=== PATIENT | female | born 1965 | race Caucasian/White ===

== ENCOUNTER 2017-11-23 05:56 | Emergency (ER) | payer OTHER ==
--- NOTE | 2017-11-23 06:10 | PDOC ---
History of Present Illness - General History Source: Patient Exam Limitations: No Limitations - History of Present Illness Initial Comments: 11/23/17 06:19 Pt is a 52 yo F with no PMHx who presents to the ED with epigastric pain today. Patient reports waking up in her usual state of health. Patient went to sleep with progressively worsening epigastric pain. Patient denies taking any pain medications for relief. Upon arrival to the ED, patient is in mild distress, holding her chest. Patient reports nausea however denies any vomiting, diarrhea , constipation, melena. Patient denies any recent changes to her diet. PCP: Estrada New <Kathy Hayden - Last Filed: 11/23/17 06:30> <Suni Del Rosario - Last Filed: 11/24/17 03:08> - General Stated Complaint: CHEST PAIN Time Seen by Provider: 11/23/17 06:10 Past History <Kathy Hayden - Last Filed: 11/23/17 06:30> <Suni Del Rosario - Last Filed: 11/24/17 03:08> - Past Medical History Allergies/Adverse Reactions: Allergies Allergy/AdvReac Type Severity Reaction Status Date / Time erythromycin base Allergy Verified 11/23/17 06:15 Home Medications: Ambulatory Orders NK [No Known Home Medication] 11/23/17 Review of Systems - Review of Systems Able to Perform ROS?: Yes Comments:: 11/23/17 06:29 GENERAL/CONSTITUTIONAL: No fever or chills. No weakness. HEAD, EYES, EARS, NOSE AND THROAT: No change in vision. No ear pain or discharge. No sore throat. CARDIOVASCULAR: No chest pain or shortness of breath. RESPIRATORY: No cough, wheezing, or hemoptysis. GASTROINTESTINAL: +epigastric pain, nausea. No vomiting, diarrhea or constipation. GENITOURINARY: No dysuria, frequency, or change in urination. MUSCULOSKELETAL: No joint or muscle swelling or pain. No neck or back pain. SKIN: No rash NEUROLOGIC: No headache, vertigo, loss of consciousness, or change in strength/ sensation. ENDOCRINE: No increased thirst. No abnormal weight change. HEMATOLOGIC/LYMPHATIC: No anemia, easy bleeding, or history of blood clots. ALLERGIC/IMMUNOLOGIC: No hives or skin allergy. <Kathy Hayden - Last Filed: 11/23/17 06:30> *Physical Exam - Vital Signs Last Vital Signs Temp Pulse Resp BP Pulse Ox 97.9 F 74 20 126/80 100 11/23/17 06:15 11/23/17 06:15 11/23/17 06:15 11/23/17 06:15 11/23/17 06:15 - Physical Exam Comments: 11/23/17 06:30 GENERAL: Awake, alert, and fully oriented, in no acute distress HEAD: No signs of trauma EYES: PERRLA, EOMI, sclera anicteric, conjunctiva clear ENT: Auricles normal inspection, hearing grossly normal, nares patent, oropharynx clear without exudates. Moist mucosa NECK: Normal ROM, supple, no lymphadenopathy, JVD, or masses LUNGS: Breath sounds equal, clear to auscultation bilaterally. No wheezes, and no crackles HEART: Regular rate and rhythm, normal S1 and S2, no murmurs, rubs or gallops ABDOMEN: Soft, nontender, normoactive bowel sounds. No guarding, no rebound. No masses EXTREMITIES: Normal range of motion, no edema. No clubbing or cyanosis. No cords, erythema, or tenderness NEUROLOGICAL: Cranial nerves II through XII grossly intact. Normal speech, normal gait SKIN: Warm, Dry, normal turgor, no rashes or lesions noted. <Kathy Hayden - Last Filed: 11/23/17 06:30> ED Treatment Course - LABORATORY CBC & Chemistry Diagram: 11/23/17 06:50 11/23/17 06:50 <Suni Del Rosario - Last Filed: 11/24/17 03:08> Medical Decision Making - Medical Decision Making 11/23/17 06:26 Pt comes with epigastric pain x 4 hrs, getting worse. SHe was given sucralfate and magic mouthwash. She will have labs and NSS 500ml. SHe will get an XRAY EKG is NSR. She will be signed out to the day ER team. 11/23/17 06:52 Morphine 2mg given to the patient. <Suni Del Rosario - Last Filed: 11/24/17 03:08> *DC/Admit/Observation/Transfer - Attestations Scribe Attestion: 11/23/17 06:30 Documentation prepared by Kathy Hayden, acting as medical affairs leader for Suni Del Rosario MD/DO. <Kathy Hayden - Last Filed: 11/23/17 06:30> <Suni Del Rosario - Last Filed: 11/24/17 03:08> Diagnosis at time of Disposition: Chest pain - Discharge Dispostion Disposition: HOME Condition at time of disposition: Improved - Referrals Referrals: Estrada New MD [Primary Care Provider] - - Patient Instructions Printed Discharge Instructions: DI for Atypical Chest Pain Additional Instructions: Activity as tolerated. Stay hydrated. Tylenol 1000 mg every 8 hours and/or ibuprofen 600 mg every 8 hours as needed for pain. Blood tests, an EKG, and a chest x-ray showed no acute abnormalities. Continue your medications as previously prescribed by your physician. You should follow up with Dr. New as soon as possible regarding today's emergency department visit. He is expecting to see you in the office on November 30 for a cardiac evaluation. Return to the emergency department for any new or concerning symptoms, particularly persistent or worsening pain, difficulty breathing, fevers or chills, lightheadedness or passing out. - Post Discharge Activity
[2017-11-23 06:17] VITALS: TEMP 97.9
[2017-11-23] MEDS ORDERED: SUCRALFATE 1 GM/10 ML UNIT DOSE CUPS PO ONE (06:19)
[2017-11-23] MEDS ORDERED: MAG HYDROX/ALH/SMC/DPHA/LIDO 240 ML MOUTHWASH MM ONE (06:25)
[2017-11-23] MEDS ORDERED: SODIUM CHLORIDE 0.9% 500 ML INFUS.BAG IV ONE (06:26)
[2017-11-23] MEDS ORDERED: morphine CARPU-JECT 10 MG/1 ML DISP.SYRIN ONE (06:38)
[2017-11-23] MEDS ORDERED: morphine CARPU-JECT 2 MG/1 ML DISP.SYRIN IVPUSH ONE (06:49)
[2017-11-23 07:26] LABS: BASO % 0.5 % (0-2.0); EOS % 1.3 % (0-4.5); HEMATOCRIT 41.5 % (32.4-45.2); HEMOGLOBIN 13.4 GM/dL (10.7-15.3); LYMPH % 18.9 % (8-40); MCH 26.6 pg (25.7-33.7); MCHC 32.3 g/dl (32.0-36.0); MEAN CELL VOLUME 82.6 fl (80-96); MEAN PLT VOLUME 8.5 fl (7.5-11.1); MONO % 4.6 % (3.8-10.2); NEUT % 74.7 % (42.8-82.8); PLATELET COUNT 308 K/MM3 (134-434); RBC 5.03 M/mm3 (3.60-5.2); RDW 13.7 % (11.6-15.6); WHITE BLOOD COUNT 12.2 K/mm3 (4.0-10.0)
[2017-11-23 07:41] LABS: INR 1.03 (0.82-1.09); PROTHROMBIN TIME (PATIENT) 11.6 SEC (9.98-11.88)
[2017-11-23 07:52] LABS: ALBUMIN 3.6 g/dl (3.4-5.0); ANION GAP 8 (8-16); BILIRUBIN,TOTAL 0.3 mg/dL (0.2-1.0); BLOOD UREA NITROGEN 21 mg/dL (7-18); CHLORIDE 106 mmol/L (98-107); CO2 25 mmol/L (21-32); CREATININE 0.7 mg/dL (0.55-1.02); GLUCOSE,RANDOM 111 mg/dL (74-106); POTASSIUM 3.6 mmol/L (3.5-5.1); SGOT/AST 18 U/L (15-37); SGPT/ALT 35 U/L (12-78); SODIUM 139 mmol/L (136-145); TOT PROT 7.1 g/dl (6.4-8.2)
[2017-11-23 07:55] LABS: ALK PHOS 86 U/L (45-117)
--- NOTE | 2017-11-23 09:03 | PDOC ---
*Physical Exam - Vital Signs Last Vital Signs Temp Pulse Resp BP Pulse Ox 97.9 F 73 16 119/78 99 11/23/17 06:15 11/23/17 07:39 11/23/17 07:39 11/23/17 07:39 11/23/17 07:39 - Physical Exam Comments: 11/23/17 08:40 VSS, normal O2 sat alert seated in stretcher, initially with persistent sharp chest pain then resolved after morphine. Now asleep and comfortable no reproducible chest discomfort lungs clear no edema/calf ttp ED Treatment Course - LABORATORY CBC & Chemistry Diagram: 11/23/17 06:50 11/23/17 06:50 - ADDITIONAL ORDERS Additional order review: Laboratory Results 11/23/17 11/23/17 06:50 06:50 PT with INR 11.60 INR 1.03 Sodium 139 Potassium 3.6 Chloride 106 Carbon Dioxide 25 Anion Gap 8 BUN 21 H Creatinine 0.7 Creat Clearance w eGFR > 60 Random Glucose 111 H Calcium 9.0 Total Bilirubin 0.3 AST 18 ALT 35 Alkaline Phosphatase 86 Creatine Kinase 107 Troponin I 0.02 Total Protein 7.1 Albumin 3.6 11/23/17 06:50 RBC 5.03 MCV 82.6 MCHC 32.3 RDW 13.7 MPV 8.5 Neutrophils % 74.7 Lymphocytes % 18.9 Monocytes % 4.6 Eosinophils % 1.3 Basophils % 0.5 - Medications Given in the ED: ED Medications Discontinued Medications Generic Name Dose Route Start Last Admin Trade Name Freq PRN Reason Stop Dose Admin Lidocaine/Aluminum/Magnesium/Simeth 15 ml 11/23/17 06:25 11/23/17 06:20 Magic Mouthwash *Sjr Formula* - MM 11/23/17 06:26 15 ml ONCE ONE Administration Morphine Sulfate 2 mg 11/23/17 06:49 11/23/17 06:45 Morphine Injection - IVPUSH 11/23/17 06:50 2 mg ONCE ONE Administration Sodium Chloride 500 ml 11/23/17 06:26 11/23/17 06:48 Normal Saline - IV 11/23/17 06:27 500 ml ONCE ONE Administration Sucralfate 1 gm 11/23/17 06:19 11/23/17 06:20 Carafate Oral Suspension - PO 11/23/17 06:20 1 gm ONCE ONE Administration Medical Decision Making - Medical Decision Making 11/23/17 09:03 Received signout on this 52-year-old female with no severe past medical history presents with epigastric/chest pain that awoke her from sleep at 1 AM. The patient was in her usual state of good health, was asleep for about an hour and then was awoken suddenly by sharp pain in the substernal/epigastric region that radiated to her left chest. No associated difficulty breathing, no cough, no lightheadedness or nausea or diaphoresis. No history of similar pain, no history of postprandial pain, no known gastritis/heartburn. Vital signs are normal Exam is normal Plan at sign out was to follow up labs and chest x-ray, patient was given morphine, and plan was to do 2 troponins and likely discharged given low risk for ACS. I added a d-dimer given the atypical presentation for ACS, chest x-ray is normal. First troponin is negative, remaining labs are normal. Patient is much more comfortable, now asleep after morphine. Follow-up d-dimer, check second troponin, distal cortically. Will place patient on observation on monitor for the remainder of the workup. 11/23/17 12:09 Pain resolved, comfortably asleep and without complaints at this time. Trop negative x2, ddimer negative. Discussed with PMD Dr. Collins New, agrees with d/c plan. Made appt for cardiac eval in his office on 11/30, likely stress testing. Pt agrees with d/c plan, understands return criteria. *DC/Admit/Observation/Transfer Diagnosis at time of Disposition: Chest pain Qualifiers: Chest pain type: unspecified Qualified Code(s): R07.9 - Chest pain, unspecified - Discharge Dispostion Disposition: HOME Condition at time of disposition: Improved - Referrals Referrals: Estrada New MD [Primary Care Provider] - - Patient Instructions Printed Discharge Instructions: DI for Atypical Chest Pain Additional Instructions: Activity as tolerated. Stay hydrated. Tylenol 1000 mg every 8 hours and/or ibuprofen 600 mg every 8 hours as needed for pain. Blood tests, an EKG, and a chest x-ray showed no acute abnormalities. Continue your medications as previously prescribed by your physician. You should follow up with Dr. New as soon as possible regarding today's emergency department visit. He is expecting to see you in the office on November 30 for a cardiac evaluation. Return to the emergency department for any new or concerning symptoms, particularly persistent or worsening pain, difficulty breathing, fevers or chills, lightheadedness or passing out. - Post Discharge Activity
[2017-11-23 12:26] VITALS: BP 97/65; PULSE 61
--- NOTE | 2017-11-24 09:41 | EKG ---
Test Reason : Blood Pressure : / mmHG Vent. Rate : 068 BPM Atrial Rate : 068 BPM P-R Int : 180 ms QRS Dur : 082 ms QT Int : 392 ms P-R-T Axes : 032 070 056 degrees QTc Int : 416 ms NORMAL SINUS RHYTHM LOW VOLTAGE QRS BORDERLINE ECG NO PREVIOUS ECGS AVAILABLE Confirmed by MD Anuj, Carlos ([id number]) on 11/24/2017 9:41:06 AM Referred By: Confirmed By:Carlos Leslie MD
== END 2017-11-23 12:27 | disposition home or self-care (01) ==
LOC: JER 05:56
PROC: 3E033NZ Introduction of Analgesics, Hypnotics, Sedatives into Peripheral Vein, Percutaneous Approach (ICD-10-PCS; principal; 2017-11-23)
DX: R07.89 Other chest pain (principal)
CPT/HCPCS: 36415; 71045-TC; 80053; 82550; 84484; 85025; 85379; 85610; 93005; 93010; 96374; 99285-25

== ENCOUNTER 2018-06-20 18:55 | Emergency (ER) | payer OTHER ==
[2018-06-20 19:08] VITALS: BP 128/72; PULSE 72; TEMP 98.9; BMI 30.2
[2018-06-20] MEDS ORDERED: TETANUS AND DIPHTHERIA TOXOID 0.5 ML DISP.SYRIN IM ONE (19:08)
--- NOTE | 2018-06-20 19:11 | PDOC ---
Rapid Medical Evaluation Chief Complaint: Laceration Time Seen by Provider: 06/20/18 19:07 Medical Evaluation: Allergies Allergy/AdvReac Type Severity Reaction Status Date / Time erythromycin base Allergy Verified 06/20/18 19:03 06/20/18 19:07 c/o laceration to 3rd, 4rth and 5th digit cut fingers on a broke glass plate. patient reports that she feels glass piece to left elbow. noted to have a small abrasion. last tetanus unknown PE: + ~ 1.5 cm to 2 cm laceration to 3rd, 4th and 5th digit. A: finger laceration P; xray tetanus patient to fast track for further management of care. 06/20/18 19:09 Discharge Disposition - Diagnosis Finger laceration Qualifiers: Encounter type: initial encounter Finger: unspecified finger Damage to nail status: without damage Foreign body presence: unspecified Laterality: left Qualified Code(s): S61.219A - Laceration without foreign body of unspecified finger without damage to nail, initial encounter - Referrals - Patient Instructions - Post Discharge Activity
[2018-06-20] MEDS ORDERED: LIDOCAINE HCL 1%, 10 MG/ML (50 mL VIAL) SQ ONE (20:35)
[2018-06-20] MEDS ORDERED: LIDOCAINE HCL 1%, 10 MG/ML (20ML VIAL) ONE (20:38)
--- NOTE | 2018-06-20 21:06 | PDOC ---
History of Present Illness - General Chief Complaint: Laceration Stated Complaint: LACERATION Time Seen by Provider: 06/20/18 19:07 - History of Present Illness Initial Comments: 53-year-old female without comorbidities presents for evaluation of laceration on her left hand at this occurred while at home carrying a glass dish. Her tetanus was updated. 06/20/18 21:05 Past History - Past Medical History Allergies/Adverse Reactions: Allergies Allergy/AdvReac Type Severity Reaction Status Date / Time erythromycin base Allergy Verified 06/20/18 19:03 Home Medications: Ambulatory Orders NK [No Known Home Medication] 11/23/17 COPD: No DVT: No Other medical history: DENIES. - Immunization History Immunization Up to Date: Yes - Suicide/Smoking/Psychosocial Hx Smoking History: Never smoked Have you smoked in the past 12 months: No Hx Alcohol Use: No Drug/Substance Use Hx: No Substance Use Type: None Review of Systems - Review of Systems Musculoskeletal: Yes: See HPI All Other Systems: Reviewed and Negative *Physical Exam - Vital Signs Last Vital Signs Temp Pulse Resp BP Pulse Ox 98.9 F 72 19 128/72 97 06/20/18 19:03 06/20/18 19:03 06/20/18 19:03 06/20/18 19:03 06/20/18 19:03 - Physical Exam Comments: Left elbow skin color and temperature are normal there are superficial abrasions on the left elbow full range of motion minimal tenderness no gross sensorimotor deficits Left wrist skin color and temperature are normal there is a superficial abrasion on the volar aspect of the left wrist there is a small piece of glass on one of the wounds in the left wrist at the ulnar aspect. This small piece of glass was removed without complication. Left hand examination There is a irregular laceration on the radial aspect of the middle finger on the skin overlying the middle phalanx FDS and FDP function independently there are no gross sensorimotor deficits. There is a linear laceration on the fifth finger overlying the dorsum of the DIPJ. Extensor tendon function is preserved FDS and FDP work independently there are no gross sensorimotor deficits. 06/20/18 21:01 ED Treatment Course - Medications Given in the ED: ED Medications Discontinued Medications Generic Name Dose Route Start Last Admin Trade Name Freq PRN Reason Stop Dose Admin Lidocaine HCl 15 ml 06/20/18 20:35 06/20/18 20:55 Xylocaine 1% SQ 06/20/18 20:36 15 ml ONCE ONE Administration Tetanus/Diphtheria Toxoids Adsorbed 0.5 ml 06/20/18 19:08 06/20/18 20:24 Decavac IM 06/20/18 19:09 0.5 ml .ONCE ONE Administration Medical Decision Making - Medical Decision Making Under aseptic technique digital block using 1% lidocaine without epinephrine was used in the third finger and the fifth finger of the left hand. 6 4-0 nylon sutures were used to close the third finger laceration in 2 4-0 nylon sutures were used to close the fifth finger laceration this was done without complication wounds were copiously irrigated with normal saline and prepped with Betadine prior to closure. No foreign body was identified both wounds were explored to their bases in a bloodless vidales. 06/20/18 21:03 *DC/Admit/Observation/Transfer Diagnosis at time of Disposition: Finger laceration Qualifiers: Encounter type: initial encounter Finger: unspecified finger Damage to nail status: without damage Foreign body presence: unspecified Laterality: left Qualified Code(s): S61.219A - Laceration without foreign body of unspecified finger without damage to nail, initial encounter - Discharge Dispostion Disposition: HOME Condition at time of disposition: Stable Decision to Admit order: No - Referrals Referrals: Estrada New MD [Primary Care Provider] - Remy Oliveira MD [Staff Physician] - - Patient Instructions Printed Discharge Instructions: DI for Laceration Repair Additional Instructions: Keep the wounds clean and dry and covered for the next 48 hours. After 48 hours you may take off the dressings and wash her hand with soap and water and leave it open to air. You may not take a bath or submerge the wounds. Follow-up with hand surgery in 1-2 days for further evaluation and treatment options. Return to the emergency room in 10 days for suture removal. Do not apply any ointments only wash her hand with soap and water. If the wound becomes irritated painful red swollen or starts to have discharge please return to the emergency room sooner - Post Discharge Activity
== END 2018-06-20 21:09 | disposition home or self-care (01) ==
LOC: JERFT 18:55
PROC: 0HQGXZZ Repair Left Hand Skin, External Approach (ICD-10-PCS; principal; 2018-06-20)
PROC: 3E0234Z Introduction of Serum, Toxoid and Vaccine into Muscle, Percutaneous Approach (ICD-10-PCS; 2018-06-20)
DX: S61.218A Laceration without foreign body of other finger without damage to nail, initial encounter (principal); S61.215A Laceration without foreign body of left ring finger without damage to nail, initial encounter; S61.213A Laceration without foreign body of left middle finger without damage to nail, initial encounter; S61.217A Laceration without foreign body of left little finger without damage to nail, initial encounter; W25.XXXA Contact with sharp glass, initial encounter; Y93.89 Activity, other specified; Y92.018 Other place in single-family (private) house as the place of occurrence of the external cause; Y99.8 Other external cause status
CPT/HCPCS: 12001; 12011; 73070-TC-LT-FY; 73130-TC-LR-FY; 90471; 99281-25